=== PATIENT | male | born 1955 | race Caucasian/White ===

== ENCOUNTER → 2016-12-10 | Outpatient (CLI) | payer OTHER ==
[~2016-12-10] MED LIST: ADVIL200 M2 PO; ASPIRIN LO-DOSE81 MG PO; COLACE100 MG PO; CORDARONE,PACE200 MG PO; LIPITOR40 MG PO; NORCO 5-325 MG1 TAB PO; PROVENTIL OR V6.7 GM INH; TOPROL XL 5050 MG PO
[2016-12-10 10:16] LABS: ALBUMIN 3.7 gm/dL (3.5-5.0); ANION GAP 11.4 (10.0-19.0); CALCIUM 8.8 mg/dL (8.5-10.5); CREATININE 1.5 mg/dL (0.6-1.3); POTASSIUM 4.4 mMol/L (3.7-5.1); TOTAL BILIRUBIN 0.7 mg/dL (0.0-1.5); TOTAL PROTEIN 7.2 g/dL (6.0-8.4)
== END | disposition disaster alternative care site (69) ==
LOC: LNHI 09:49
PROVIDERS: Internal Medicine Interventional Cardiology
DX: I10 Essential (primary) hypertension (principal); I25.10 Atherosclerotic heart disease of native coronary artery without angina pectoris